=== PATIENT | male | born 1995 | race African-American/Black ===

== ENCOUNTER 2020-11-18 07:19 | Emergency (ER) | payer MEDICAID ==
[~2020-11-18] VITALS: Ht 175.3 cm; Wt 78.0 kg
[2020-11-18] MEDS ORDERED: KETOROLAC 60MG/2ML VIAL IM ONE (08:00)
[2020-11-18] MEDS ORDERED: IBUP-2028 MT (09:50)
[2020-11-18 10:20] VITALS: BP 127/87
== END 2020-11-18 10:21 | disposition home or self-care (01) ==
LOC: ER 07:50
DX: S13.8XXA Sprain of joints and ligaments of other parts of neck, initial encounter (principal); R07.89 Other chest pain; V49.49XA Driver injured in collision with other motor vehicles in traffic accident, initial encounter; Y93.89 Activity, other specified; Y92.89 Other specified places as the place of occurrence of the external cause; Y99.8 Other external cause status
CPT/HCPCS: 71045; 93005; 96372; 99283; J1885